=== PATIENT | female | born 1970 | race Caucasian/White ===

== ENCOUNTER 2023-03-12 16:59 | Emergency (ER) | payer MEDICAID, OTHER ==
[~2023-03-12] VITALS: Ht 165.1 cm; Wt 65.4 kg
[2023-03-12 17:51] LABS: Basophils # (auto) 0 10 ^3/uL (0-0.2); Basophils % (auto) 0.4 % (0.0-2.0); Eosinophils # (auto) 0.1 10 ^3/uL (0-0.8); Eosinophils % (auto) 0.6 % (0.0-7.0); Hematocrit 35.6 % (36.0-46.0); Hemoglobin 11.1 g/dL (12.2-16.2); Lymphocytes # (auto) 0.8 10 ^3/uL (0.4-5.4); Lymphocytes % (auto) 8.6 % (10.0-50.0); Mean Corpuscular Hemoglobin 19.1 pg (28.0-32.0); Mean Corpuscular Hgb Conc. 31.2 g/dL (32.0-36.0); Mean Corpuscular Volume 61.2 fL (80.0-100.0); Monocytes # (auto) 0.5 10 ^3/uL (0-1.3); Monocytes % (auto) 5.4 % (0.0-12.0); Neutrophils # (auto) 8.1 10 ^3/uL (1.6-8.6); Nucleated Red Blood Cells % 0.2 %; Red Blood Cells 5.82 10^6/uL (4.0-5.20); White Blood Cell 9.5 10^3/uL (4.4-10.8)
[2023-03-12 18:16] LABS: Albumin 4.2 g/dL (3.4-5.0); Calcium 9.1 mg/dL (8.5-10.1)
[2023-03-12 18:21] LABS: BUN/Creatinine Ratio 21.6 (10.0-20.0); Bilirubin, Total 0.7 mg/dL (0.2-1.0); Total Protein 7.6 g/dL (6.4-8.2)
[2023-03-12 19:30] LABS: Urine Bacteria MANY /hpf (None Seen); Urine Blood 3+ /uL (Negative); Urine Hyaline Cast FEW /lpf (0 - 2); Urine Mucus FEW (None Seen); Urine WBC 62 /hpf (0 - 5)
[2023-03-12] MEDS: HYDROcodone-ACET 10/325MG TAB PO ONE (19:58)
[2023-03-12] MEDS: ONDANSETRON ODT 4 MG TAB PO ONE (19:58)
[2023-03-12] MEDS: KETOROLAC TROMETH 60MG/2ML VIAL IM ONE (19:59)
[2023-03-12] MEDS: levoFLOXacin 250 MG TAB PO ONE (19:59)
[2023-03-12] MEDS ORDERED: LEVO500T31 PO (22:14)
[2023-03-12] MEDS ORDERED: IBUP800T26 PO (22:15)
[2023-03-12] MEDS ORDERED: HYDR-4902 PO (22:15)
[2023-03-12] MEDS ORDERED: ONDA-144 PO (22:15)
[2023-03-12 22:41] VITALS: BP 114/65
== END 2023-03-12 22:44 | disposition home or self-care (01) ==
LOC: ER 16:59
DX: N12 Tubulo-interstitial nephritis, not specified as acute or chronic (principal); D64.9 Anemia, unspecified
CPT/HCPCS: 36415; 80053; 81001; 83690; 85025; 93005; 96372; 99284; J1885; Q0162